=== PATIENT | female | born 1940 | race Caucasian/White ===

== ENCOUNTER → 2019-01-24 | Outpatient (CLI) | payer MEDICARE, OTHER ==
[~2019-01-24] MED LIST: ADVANCED CALCI1 EACH PO; ANAPROX DS550 MG PO; ASPIRIN81 M2 PO; FISH OIL 1,4001 EACH PO; IRON TABLET1 EACH PO; LEVOTHYROXINE0.05 MG PO; LIPITOR40 MG PO; ONE-A-DAY WOMENS PO; VITAMIN D-40400 UNIT PO; VITAMIN E400 UNI6 PO; VITAMINC500 PO; VITAMINS
== END ==
LOC: M.RAD 14:45
DX: Z12.31 Encounter for screening mammogram for malignant neoplasm of breast (principal)

== ENCOUNTER → 2019-03-01 | Outpatient (CLI) | payer MEDICARE, OTHER ==
--- NOTE | 2019-03-01 17:21 | CARDNUC ---
[place] [address] CARDIAC NUCLEAR IMAGING REPORT Name: RADHA BERRIOS Room: [facility]#: [id number] Admission: 03/01/19 Attend Phys: Teto Mills, Discharge: Date of : 38 Date of Service: 03/01/19 1721 Report #: [id number] THIS REPORT FOR: //name// APPROVED REPORT Study performed: 03/01/2019 10:44:16 Exam: Nuclear Stress Test Indication: Chest pain, Dyspnea Patient Location: Out-Patient Stress Tech: Gloria Nguyen Stress Nurse: Kitty Lewis RN Ht: 5 ft 0 in Wt: 150 lbs BSA: 1.65 m2 BMI: 29.29 Medical History Medical History: hyprlipidemia, hypretension, pvd Medications: asa-81, simvastatin, telmisartan Allergies: nkda Cardiac Risk Factors: age, hyperlipidemia, hypertension, pvd, family hx Previous Cardiac Procedures: none Exercise History: Indeterminate Stress Test Details Stress Test: Pharmacologic stress was paired with low level exercise. Reason for pharmacologic stress test: physical limitation. HR Resting HR: 57 bpm Max Heart Rate (APMHR): 141 bpm Max HR Achieved: 105 bpm Target HR (85% APMHR): 119 bpm % of APMHR: 74 Recovery HR: 75 bpm BP Resting BP: 143/73 mmHg Max BP: 169/80 mmHg ECG Resting ECG: Sinus Rhythm, nonspecific ST-T abnormalities Stress ECG: Sinus Tachycardia ST Change: [place] [address] CARDIAC NUCLEAR IMAGING REPORT Name: RADHA BERRIOS Room: [facility]#: [id number] Admission: 03/01/19 Attend Phys: Teto Mills, Discharge: Date of : 38 Date of Service: 03/01/19 1721 Report #: [id number] Deviation: 0.5 mm Arrhythmia: None Recovery ECG: Sinus Rhythm Recovery ST Change: Horizontal ST depression Recovery ST Deviation: 0.5 mm Recovery Arrhythmia: None Clinical Reason for Termination: Completed protocol The patient tolerated Lexiscan infusion without significant cardiac symptoms. Nurse Comments pt had st depression and chest pain during test. relieved with rest Stress ECG Conclusion The baseline 12-lead EKG showed sinus rhythm with some nonspecific T-wave flattening. EKGs obtained during and post Lexiscan infusion showed sinus rhythm and sinus tachycardia 0.[address] segment depression in the inferolateral leads. NM EXAM: Myocardial Perfusion REST/STRESS Resting Data Rest SPECT myocardial perfusion imaging was performed in supine position 30 minutes following the intravenous injection of 10.6 mCi of Tc-99m Sestamibi. Time of rest injection: 9:05 The images were gated to evaluate regional wall motion and calculate left ventricular ejection fraction. Administration Route: IV Administration Site: Right Arm Pharmacologic Stress Pharmacologic stress test was performed by injecting Regadenoson 0.4 mg IV push followed by the intravenous injection of 32.0 mCi of Tc-99m Sestamibi. Time of stress injection: 10:50 Administration Route: IV Administration Site: Right Arm Heart Rate at time of stress injection: 91 bpm. Gated Stress SPECT was performed 45 minutes after stress injection. The images were gated to evaluate regional wall motion and calculate left [place] [address] CARDIAC NUCLEAR IMAGING REPORT Name: RADHA BERRIOS Room: [facility]#: [id number] Admission: 03/01/19 Attend Phys: Teto Mills, Discharge: Date of : 38 Date of Service: 03/01/19 1721 Report #: [id number] Study Quality Study: Good Artifact: No artifact Study Data At rest, the left ventricular ejection fraction was 61%.. Post stress, the left ventricular ejection was 75%.. TID = 0.88. Perfusion Normal left ventricular perfusion. Wall Motion Normal left ventricular wall motion. Nuclear Conclusion ECG Findings: non-diagnostic Clinical Findings: negative for ischemia Nuclear Findings: negative for ischemia Exercise Capacity: not assessed Left Ventricular Function: normal Risk Study: low Myocardial perfusion images show no defect to suggest infarct or ischemia. Left ventricular systolic function appears normal on gated studies. This is a low risk study. <Conclusion> The baseline 12-lead EKG showed sinus rhythm with some nonspecific T-wave flattening. EKGs obtained during and post Lexiscan infusion showed sinus rhythm and sinus tachycardia 0.[address] segment depression in the inferolateral leads. <ELECTRONICALLY SIGNED> By: Teto Mills MD, [facility] 03/01/19 [id number] Teto Mills MD, FACC /INF
== END ==
LOC: M.NUC 02-19 08:38 → M.RAD 08:22 → M.NUC 08:30 → M.CRD 09:00 → M.NUC 10:00
DX: J98.4 Other disorders of lung (principal); J98.11 Atelectasis; E78.5 Hyperlipidemia, unspecified; I11.9 Hypertensive heart disease without heart failure; I73.9 Peripheral vascular disease, unspecified; Z79.899 Other long term (current) drug therapy; Z82.49 Family history of ischemic heart disease and other diseases of the circulatory system

== ENCOUNTER → 2019-03-26 | Outpatient (CLI) | payer MEDICARE, OTHER ==
[2019-03-26 14:05] LABS: CALCIUM 9.5 mg/dL (8.5-10.1); CREATININE 1.1 mg/dL (0.6-1.3); POTASSIUM 4.5 mmol/L (3.5-5.1)
--- NOTE | 2019-03-26 14:59 | 2DMMODE ---
[place] [address] 2 D/M-MODE ECHOCARDIOGRAM Name: RADHA BERRIOS Room: [facility]#: [id number] Admission: 03/26/19 Attend Phys: Brielle Thompson, Discharge: Date of : 38 Date of Service: 03/26/19 1459 Report #: [id number] THIS REPORT FOR: //name// APPROVED REPORT Study performed: 03/26/2019 13:45:13 EXAM: Comprehensive 2D, Doppler, and color-flow Echocardiogram Patient Location: Out-Patient BSA: 1.63 HR: 58 bpm BP: 143/73 mmHg Other Information Study Quality: Good Indications Dyspnea 2D Dimensions IVSd: 10.48 (7-11mm) LVOT Diam: 19.75 (18-24mm) LVDd: 41.28 mm PWd: 9.64 (7-11mm) Ascending Ao: 28.05 (22-36mm) LVDs: 24.45 (25-40mm) Aortic Root: 25.29 mm Volumes Left Atrial Volume (Systole) LA ESV Index: 17.90 mL/m2 Aortic Valve AoV Peak Fortino.: 1.19 m/s AO Peak Gr.: 5.62 mmHg LVOT Max P.86 mmHg AO Mean Gr.: 2.82 mmHg LVOT Mean P.57 mmHg LVOT Max V: 0.98 m/s AO V2 VTI: 24.43 cm LVOT Mean V: 0.56 m/s VASHTI (VTI): 2.43 cm2 LVOT V1 VTI: 19.37 cm Mitral Valve E/A Ratio: 0.67 MV Decel. Time: 261.06 ms MV E Max Fortino.: 0.37 m/s MV PHT: 75.71 ms MVA (PHT): 2.91 [place]2 [place] [address] 2 D/M-MODE ECHOCARDIOGRAM Name: RADHA BERRIOS Room: [facility]#: [id number] Admission: 03/26/19 Attend Phys: Brielle Thompson, Discharge: Date of : 38 Date of Service: 03/26/19 1459 Report #: [id number] TDI E/Lateral E': 6.17 E/Medial E': 3.70 Medial E' Fortino.: 0.10 m/s Lateral E' Fortino.: 0.06 m/s Pulmonary Valve PV Peak Fortino.: 1.00 m/s PV Peak Gr.: 3.99 mmHg Tricuspid Valve RAP Estimate: 5.00 mmHg TR Peak Gr.: 19.94 mmHg RVSP: 24.94 mmHg PA Pressure: 24.94 mmHg Left Ventricle The left ventricle is normal size. There is normal LV segmental wall motion. There is normal left ventricular wall thickness. Left ventricular systolic function is normal. LVEF is 60-65%. Grade I - abnormal relaxation pattern. Right Ventricle The right ventricle is normal size. The right ventricular systolic function is normal. Atria The left atrium size is normal. The right atrium size is normal. Aortic Valve The aortic valve is normal in structure. Trace aortic regurgitation. There is no aortic valvular stenosis. Mitral Valve The mitral valve is normal in structure. Trace mitral regurgitation. No evidence of mitral valve stenosis. Tricuspid Valve The tricuspid valve is normal in structure. Mild tricuspid regurgitation. No pulmonary hypertension. Pulmonic Valve The pulmonary valve is normal in structure. There is no pulmonic valvular regurgitation. Great Vessels The aortic root is normal in size. IVC [place] [address] 2 D/M-MODE ECHOCARDIOGRAM Name: RADHA BERRIOS Room: [facility]#: [id number] Admission: 03/26/19 Attend Phys: Brielle Thompson, Discharge: Date of : 38 Date of Service: 03/26/19 1459 Report #: [id number] collapses >50% with inspiration. Pericardium There is no pericardial effusion. <Conclusion> The left ventricle is normal size. There is normal left ventricular wall thickness. Left ventricular systolic function is normal. LVEF is 60-65%. Grade I - abnormal relaxation pattern. Trace aortic regurgitation. Trace mitral regurgitation. Mild tricuspid regurgitation. No pulmonary hypertension. IVC is normal in size and collapses >50% with inspiration. <ELECTRONICALLY SIGNED> By: Teto Mills MD, FACC 03/26/19 1459 1459 145 Teto Mills MD, FACC /INF
--- NOTE | 2019-04-09 08:02 | PF ---
[address] [address] PULMONARY FUNCTION REPORT Name: AGUSTINARADHA Carolina Room: [facility]#: [id number] Admission: 03/26/19 Attend Phys: Brielle Thompson RN Discharge: Date of : 38 Report #: [id number] THIS REPORT FOR: //name// CC: Jennifer Thompson DATE OF SERVICE: 03/26/2019 REQUESTING PHYSICIAN: Brielle Thompson, nurse practitioner. Spirometry reveals FEV1 to be normal at 1.75, FVC at 2.43. FEV1/FVC ratio 72%. Mid flows were moderately decreased at 55% of predicted. After inhaled bronchodilator, there was no change in the FEV1. However, mid flows did improve by 22%. Lung volumes by plethysmography were normal. Diffusion capacity was mildly diminished. IMPRESSION: Studies are consistent with a minimal obstructive process. Seen primarily at the level of the small airways. There is improvement after inhaled bronchodilator. Mild decrease in diffusion capacity. <ELECTRONICALLY SIGNED> By: Julieth Clemons MD 04/09/19 0802 1019 [id number] Clemons MD /nt
== END ==
LOC: M.CRD 03-18 17:33 → M.PUL 13:00 → M.CRD 14:00
PROVIDERS: Nurse Practitioner
DX: I07.1 Rheumatic tricuspid insufficiency (principal); R06.09 Other forms of dyspnea; I10 Essential (primary) hypertension

== ENCOUNTER → 2019-07-26 | Outpatient (CLI) | payer MEDICARE, OTHER | LOC: M.ULTRA 07-17 15:14 | DX: K80.20 Calculus of gallbladder without cholecystitis without obstruction (principal); N85.4 Malposition of uterus ==

== ENCOUNTER → 2019-08-01 | Outpatient (CLI) | payer MEDICARE, OTHER | LOC: M.CT 13:05 | DX: R10.32 Left lower quadrant pain (principal); K82.9 Disease of gallbladder, unspecified ==

== ENCOUNTER 2019-12-05 16:49 | Inpatient (IN) | payer MEDICARE, OTHER ==
[~2019-12-05] VITALS: Ht 152.4 cm; Wt 72.3 kg
[~2019-12-05 16:49] MED LIST changes: +ADVANCED CALCI1 EAC1 PO; -ADVANCED CALCI1 EACH PO; +IRON 100 PLUS1 EACH PO; -IRON TABLET1 EACH PO; -LEVOTHYROXINE0.05 MG PO; +SYNTHROID50 MCG PO; +VITAMIN D-40010 MCG PO; -VITAMIN D-40400 UNIT PO
[2019-12-05 16:55] VITALS: BP 178/81
[2019-12-05] MEDS ORDERED: LASIX 40 MG TAB40 MG PO (17:00)
[2019-12-05] MEDS ORDERED: OMEPRAZOLE40 MG PO (17:02)
[2019-12-05] MEDS ORDERED: SIMVASTATIN80 MG PO (17:03)
[2019-12-05] MEDS ORDERED: REQUIP 0.25 M0.25 MG PO (17:03)
[2019-12-05] MEDS ORDERED: TOLTERODINE TART4 MG PO (17:04)
[2019-12-05] MEDS ORDERED: FAMOTIDINE 40 M40 M1 PO (17:04)
[2019-12-05 17:45] LABS: ABSOLUTE EOSINOPHILS 0.2 thou/uL (0.0-0.7); ABSOLUTE LYMPHOCYTES 1.8 thou/uL (0.8-5.3); ABSOLUTE MONOCYTES 0.5 thou/uL (0.0-1.2); ABSOLUTE NEUTROPHILS 3.4 thou/uL (1.6-8.1); BASOPHILS 0.5 %; EOSINOPHILS 2.9 %; HEMATOCRIT 33.3 % (37.0-47.0); HEMOGLOBIN 11.5 gm/dL (12.0-15.0); LYMPHOCYTES 30.8 %; MCH 32.2 pg (26.0-34.0); MCHC 34.6 g/dL (28.0-37.0); MONOCYTES 8.2 %; MPV 7.8 fl. (7.2-11.1); NUCLEATED RBCS 0 /100WBC; PLATELET COUNT* 151 thou/uL (150-400); POLYS 57.6 %; RBC 3.59 mil/uL (4.20-5.00); RDW-CV 13.5 % (10.5-14.5); WBC 5.9 thou/uL (4.0-11.0)
[2019-12-05 17:51] LABS: CALCIUM 8.2 mg/dL (8.5-10.1); CREATININE 1.2 mg/dL (0.6-1.3); POTASSIUM 4.7 mmol/L (3.5-5.1)
[2019-12-05 18:01] LABS: ALBUMIN 3.3 g/dL (3.4-5.0); MAGNESIUM 1.9 mg/dL (1.8-2.4); TOTAL BILIRUBIN 0.4 mg/dL (<0.1-1.0); TOTAL PROTEIN 6.7 g/dL (6.4-8.2)
[2019-12-05 19:55] VITALS: BP 178/88
[2019-12-05 20:07] VITALS: BP 126/58
[2019-12-05] MEDS ORDERED: ACETAMINOPHEN325 M1 PO (20:47)
[2019-12-05 23:45] VITALS: BP 134/71
[2019-12-06] VITALS (34 sets, daily range): BP systolic 89–125; BP diastolic 42–85
[2019-12-06 00:39] LABS: HEMOGLOBIN 11.6 gm/dL (12.0-15.0); MCH 32.5 pg (26.0-34.0); MCHC 35.2 g/dL (28.0-37.0); MCV 92.4 fL (80.0-100.0); RBC 3.57 mil/uL (4.20-5.00); RDW-CV 13.8 % (10.5-14.5); WBC 6.8 thou/uL (4.0-11.0)
[2019-12-06 10:18] LABS: CHOLESTEROL 205 mg/dL (<200); HDL CHOLESTEROL 61 mg/dL (>40); LDL CHOLESTEROL 124 mg/dL (<100); TC:HDL 3.4 Ratio (Not establshd); TRIGLYCERIDE 103 mg/dL (<150); VLDL 21 mg/dL (<40)
[2019-12-06 10:19] LABS: SERUM ASSESSMENT Clear
[2019-12-06 13:48] LABS: ALBUMIN 3.3 g/dL (3.4-5.0); CALCIUM 8.2 mg/dL (8.5-10.1); CREATININE 1.2 mg/dL (0.6-1.3); POTASSIUM 4.8 mmol/L (3.5-5.1); TOTAL BILIRUBIN 0.7 mg/dL (<0.1-1.0); TOTAL PROTEIN 6.7 g/dL (6.4-8.2)
--- NOTE | 2019-12-06 16:52 | EKG ---
[place] [address] ELECTROCARDIOGRAM REPORT Name: RADHA BERRIOS Room: [address] IN M.R.#: [id number] Admission: 12/05/19 Attend Phys: Fidelina Melo, Discharge: Date of : 38 Date of Service: 12/05/19 1655 Report #: [id number] THIS REPORT FOR: //name// 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 : 1940 Requested By: Doni Carter Order Number: [id number] MD: Tristan Toribio Measurements Intervals Collins Rate: 69 P: 48 RI: 147 QRS: -9 QRSD: 93 T: 202 QT: 455 QTc: 488 Interpretive Statements Sinus rhythm Abnormal T, consider ischemia, diffuse leads Compared to ECG 10/31/2012 21:26:49 T-wave abnormality now present Possible ischemia now present Sinus bradycardia no longer present ST (T wave) deviation no longer present Incomplete right bundle-branch block no longer present Electronically Signed On 12-06-2019 16:51:00 CDT by Tristan Toribio [email or web address] <ELECTRONICALLY SIGNED> By: Tristan Toribio MD, [facility] 12/06/191650 54 54 Tristan Toribio MD, [facility] /EPI
[2019-12-07] VITALS (13 sets, daily range): BP systolic 99–137; BP diastolic 49–83
[2019-12-07 02:14] LABS: HEMOGLOBIN 10.5 gm/dL (12.0-15.0); MCH 32.7 pg (26.0-34.0); MCHC 35.1 g/dL (28.0-37.0); MPV 7.8 fl. (7.2-11.1); RBC 3.22 mil/uL (4.20-5.00); RDW-CV 13.6 % (10.5-14.5); WBC 6.3 thou/uL (4.0-11.0)
[2019-12-07 02:40] LABS: ALBUMIN 2.9 g/dL (3.4-5.0); CREATININE 1.4 mg/dL (0.6-1.3); MAGNESIUM 1.8 mg/dL (1.8-2.4); TOTAL BILIRUBIN 0.8 mg/dL (<0.1-1.0); TOTAL PROTEIN 5.6 g/dL (6.4-8.2)
--- NOTE | 2019-12-07 09:45 | EKG ---
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: : 1940 Requested By: Tristan Toribio Order Number: [id number] Claudio MD: Danielito Martinez Measurements Intervals [place] Rate: 62 P: 46 CA: 161 QRS: -15 QRSD: 96 T: 162 QT: 528 QTc: 537 Interpretive Statements Sinus rhythm Borderline left axis deviation RSR' in V1 or V2, right VCD or RVH Abnrm T, probable ischemia, anterolateral lds Prolonged QT interval Compared to ECG 10/31/2012 21:26:49 Right ventricular hypertrophy now present RSR' in V1 or V2 now present Possible ischemia now present Prolonged QT interval now present Sinus bradycardia no longer present ST (T wave) deviation no longer present Incomplete right bundle-branch block no longer present Electronically Signed On 12-07-2019 9:43:57 CDT by Danielito Martinez [email or web address] <ELECTRONICALLY SIGNED> By: Jennifer Martinez MD, [facility] 12/07/19 0943 1233 1233 Jennifer Martinez MD, [facility] /EPI
[2019-12-08] VITALS: BP 151/75
[2019-12-08 04:00] VITALS: BP 155/84
[2019-12-08 04:40] LABS: ALBUMIN 2.8 g/dL (3.4-5.0); CREATININE 1.4 mg/dL (0.6-1.3); MAGNESIUM 1.8 mg/dL (1.8-2.4); POTASSIUM 4.6 mmol/L (3.5-5.1); TOTAL BILIRUBIN 0.6 mg/dL (<0.1-1.0); TOTAL PROTEIN 5.4 g/dL (6.4-8.2)
[2019-12-08 05:13] LABS: HEMATOCRIT 27.3 % (37.0-47.0); HEMOGLOBIN 9.5 gm/dL (12.0-15.0); MCH 32.4 pg (26.0-34.0); MCHC 34.8 g/dL (28.0-37.0); MCV 93.1 fL (80.0-100.0); MPV 8.7 fl. (7.2-11.1); RBC 2.93 mil/uL (4.20-5.00); RDW-CV 13.8 % (10.5-14.5); WBC 6.2 thou/uL (4.0-11.0)
[2019-12-08 08:00] VITALS: BP 130/62
[2019-12-08] MEDS ORDERED: BRILINTA90 MG PO (09:44)
[2019-12-08 11:30] VITALS: BP 123/58
--- NOTE | 2019-12-14 10:19 | CARD ---
[address] [address] CARDIAC CATH REPORT Name: RADHA BERRIOS Room: [address] IN [facility]#: [id number] Admission: 12/05/19 Attend Phys: Fidelina Melo MD Discharge: 12/08/19 Date of : 38 Report #: [id number] THIS REPORT FOR: //name// cc: Jennifer Antoine Linda J. DO ~ ADDENDUM APPROVED REPORT Study performed: 12/06/2019 09:29:21 Patient Details Patient Status: In-Patient Room #: The patient is a 79 year-old female Event Personnel Tristan Toribio Tying Machine Operator Lumber, Wale Chapman RTR Scrub, Peggy Perez RTR Monitor, Munira Hernandez RN Oval Or Circular Glass Cutter Procedures Performed Art Access - R femoral artery, Left Heart Cath w/or w/o Coronaries LHC , SHELBY Place w/wo Plasty Single LAD , Hemostasis w/ Angioseal; CPR Indication Non-STEMI Risk Factors Hypercholesterolemia Admission/Lab Medications/Medications given during procedure Angiomax IV 10.5 ml, Angiomax Drip IV 25.3 ml per hr, Dopamine 10 mcg/kg/min ,Ticagrelor PO 180 mg, Aspirin PO 81 mg Procedure Narrative The patient was brought electively to the Cardiac Catheterization Laboratory and was prepped and draped in a sterile manner. The right femoral was infiltrated with 2% Lidocaine subcutaneous anesthesia. A 6F [place] sheath was inserted into the right femoral artery. Coronary angiography was performed using coronary diagnostic catheters. The right coronary system was accessed and visualized with a 6F JR4 catheter. The left coronary system was accessed and visualized with a 6F JL3.5 catheter. The left ventricle was accessed and visualized with a 6F Pigtail catheter. Left ventricular/Aortic Valve gradient assessed via catheter pullback. Left ventriculogram was performed in PENNY projection. Pre-demployment femoral angiogram was performed . Closure device was deployed with a 6 [place] [address] CARDIAC CATH REPORT Name: RADHA BERRIOS Carolina Room: [address]#: [id number] Admission: 12/05/19 Attend Phys: Fidelina Melo MD Discharge: 12/08/19 Date of : 38 Report #: [id number] STS. The patient tolerated the procedure well and there were no complications associated with the procedure. There was no hematoma. CPR/CODE BLUE was initiated. See Code sheet for medications during Code. Intraoperative Conscious Sedation Sedation start time: 10:25 Case end Time: 11:21 Fentanyl 25 mcg Versed 1 mg Fluoro Time: 14.9 minutes Dose: DAP 77846 cGycm2 1373 mGy Contrast Type and Amount: Visipaque 340 ml Coronary Angiography The patient's coronary anatomy is right dominant. Diagnostic Cath Left Main 10% distal narrowing LAD 90% diffuse proximalmid LAD narrowing which was severely calcified Circumflex 40% proximal and mid vessel narrowing Right Coronary 0% narrowing Left Ventriculography The left ventricle is normal in size with normal contractility. The left ventricular ejection fraction is estimated to be 55-60%. Left ventricular wall motion abnormalities are present. There is no mitral insufficiency. Mild anteroapical hypokinesis is noted Hemodynamics The aortic pressure is 113/44 mmHg with a mean of 74 mmHg. The left ventricular pressure is 119/-1 mmHg with a mean of mmHg. The left ventricular end diastolic pressure is 14 mmHg. There was no gradient across the aortic valve upon pullback. PCI Technique Lesion Anticoagulation was achieved with Angiomax. Patient was preloaded with Angiomax IV 10.5 ml. Percutaneous coronary intervention was performed on the proximal left anterior descending artery segment. The lesion stenosis prior to intervention was 90% with LEOBARDO 3 flow. A 6FR XB 3.0 100CM Guide Catheter was used to engage the lm ostium. A ProwaterFlex 180CM Interventional Guidewire was [place] [address] CARDIAC CATH REPORT Name: RADHA BERRIOS Room: [address] IN M.R.#: [id number] Admission: 12/05/19 Attend Phys: Fidelina Melo MD Discharge: 12/08/19 Date of : 38 Report #: [id number] BALLOON DILATION A Balloon catheter Mini Trek RX 2.0 X 12 was inserted and inflated up to 8.00atm for 5seconds. Additional Inflation: 12.00atm for 7seconds. Additional Inflation: 16.00atm for 9seconds. STENT DEPLOYMENT A drug-eluting stent Ian RX Stent 2.29J60ma was inserted and inflated up to 12.00atm for 4seconds. POST STENT DEPLOYMENT BALLOON DILATION A Balloon catheter Euphora SC 2.0x12mm was inserted and inflated up to 12.00atm for 3seconds. Additional Inflation: 12.00atm for 5seconds. Additional Inflation: 12.00atm for 5seconds. A Balloon catheter NC Euphora RX 2.5 x 12mm was inserted and inflated up to 12 shawn for 5 seconds. Additional Inflation: 15 shawn for 6 seconds. Final angiography reveals 0 % stenosis with LEOBARDO 3 flow. COMMENTS The patient experienced no re= flow after deployment of the proximalmid LAD stent. This resolved after CPR and infusion of dopamine with passing of the balloon catheter up and down the length of the LAD system. There was evangelical of LEOBARDO-3 flow and evangelical of normal hemodynamics after the aforementioned measures. Conclusion 1. Non-STEMI 2 severe coronary artery disease characterized by the following: A 90% diffuse calcified proximalmid LAD stenosis B 40% proximal and mid circumflex narrowing 2. Normal left-sided hemodynamic study 3. Normal global LV function, estimated ejection fraction 55 to 60% with mild anteroapical hypokinesis 4. Successful PCI with deployment of a drug-eluting stent and postdilatation of the stent with 0% residual narrowing at the site of previously noted 90% proximalmid LAD stenosis 5. Transient no reflow after deployment of the LAD stent due to [facility] [address] [place] [address] CARDIAC CATH REPORT Name: RADHA BERRIOS Room: M.227-1 DIS IN M.R.#: [id number] Admission: 12/05/19 Attend Phys: Fidelina Melo MD Discharge: 12/08/19 Date of : 38 Report #: [id number] distal microembolization; this resolved after CPR, infusion of dopamine, and passing the balloon catheter up and down the length of the LAD system. Recommendations Cardiac Risk Reduction Program Aggressive Medical Therapy Medications Administered Aspirin (any) Ticagrelor Diagnostic Cath Approved by: Tristan Toribio MD Date/Time: 12/07/2019 11:21:01 <ELECTRONICALLY SIGNED> By: Tristan Toribio MD, [facility] 12/14/19 1018 1018 1018Tristan Toribio MD, [facility] /INF
== END 2019-12-08 12:45 | disposition home or self-care (01) | DRG 246 ==
LOC: M.ERS 16:49 → M.2W 18:36 → M.TBA-ER 18:36 → M.2W 19:43 → M.ICU 12-06 11:33 → M.2W 12-07 11:35
PROVIDERS: Emergency Medicine Emergency Medical Services; Internal Medicine; Registered Nurse; ADMIT Internal Medicine; ATTEND Internal Medicine
PROC: B211YZZ Fluoroscopy of Multiple Coronary Arteries using Other Contrast (ICD-10-PCS; principal; 2019-12-06)
PROC: 4A023N7 Measurement of Cardiac Sampling and Pressure, Left Heart, Percutaneous Approach (ICD-10-PCS; principal; 2019-12-06)
PROC: 5A12012 Performance of Cardiac Output, Single, Manual (ICD-10-PCS; principal; 2019-12-06)
PROC: B215YZZ Fluoroscopy of Left Heart using Other Contrast (ICD-10-PCS; principal; 2019-12-06)
PROC: 027034Z Dilation of Coronary Artery, One Artery with Drug-eluting Intraluminal Device, Percutaneous Approach (ICD-10-PCS; principal; 2019-12-06)
DX: I21.4 Non-ST elevation (NSTEMI) myocardial infarction (principal); N17.0 Acute kidney failure with tubular necrosis; S22.42XA Multiple fractures of ribs, left side, initial encounter for closed fracture; I46.9 Cardiac arrest, cause unspecified; E87.1 Hypo-osmolality and hyponatremia; E03.9 Hypothyroidism, unspecified; E78.5 Hyperlipidemia, unspecified; I10 Essential (primary) hypertension; E66.9 Obesity, unspecified; K75.9 Inflammatory liver disease, unspecified; X58.XXXA Exposure to other specified factors, initial encounter; Z98.42 Cataract extraction status, left eye; Z98.41 Cataract extraction status, right eye; Z79.82 Long term (current) use of aspirin; Z79.899 Other long term (current) drug therapy; Z68.31 Body mass index [BMI] 31.0-31.9, adult; Y93.89 Activity, other specified; Y92.89 Other specified places as the place of occurrence of the external cause; Y99.8 Other external cause status

== ENCOUNTER → 2019-12-17 | Outpatient (CLI) | payer MEDICARE, OTHER ==
[~2019-12-17] MED LIST changes: +ACETAMINOPHEN325 M1 PO; +BRILINTA90 MG PO; +FAMOTIDINE 40 M40 M1 PO; +LASIX 40 MG TAB40 MG PO; +OMEPRAZOLE40 MG PO; +REQUIP 0.25 M0.25 MG PO; +SIMVASTATIN80 MG PO; +TOLTERODINE TART4 MG PO
[2019-12-17 14:03] LABS: ABSOLUTE EOSINOPHILS 0.2 thou/uL (0.0-0.7); ABSOLUTE LYMPHOCYTES 1.5 thou/uL (0.8-5.3); ABSOLUTE MONOCYTES 0.7 thou/uL (0.0-1.2); ABSOLUTE NEUTROPHILS 5.4 thou/uL (1.6-8.1); BASOPHILS 0.4 %; HEMATOCRIT 34.2 % (37.0-47.0); HEMOGLOBIN 11.9 gm/dL (12.0-15.0); LYMPHOCYTES 19.1 %; MCH 32.2 pg (26.0-34.0); MCHC 34.7 g/dL (28.0-37.0); MCV 92.8 fL (80.0-100.0); MONOCYTES 8.9 %; MPV 7.5 fl. (7.2-11.1); NUCLEATED RBCS 0 /100WBC; PLATELET COUNT* 198 thou/uL (150-400); POLYS 68.6 %; RBC 3.68 mil/uL (4.20-5.00); WBC 7.9 thou/uL (4.0-11.0)
[2019-12-17 14:11] LABS: CALCIUM 8.8 mg/dL (8.5-10.1); CREATININE 1.2 mg/dL (0.6-1.3); POTASSIUM 4.5 mmol/L (3.5-5.1)
== END ==
LOC: M.LAB 13:41
PROVIDERS: ATTEND Registered Nurse
DX: I10 Essential (primary) hypertension (principal); D50.9 Iron deficiency anemia, unspecified

== ENCOUNTER → 2020-01-15 | Outpatient (CLI) | payer MEDICARE, OTHER ==
--- NOTE | 2020-01-15 15:02 | 2DMMODE ---
[place] [address] 2 D/M-MODE ECHOCARDIOGRAM Name: AGUSTINARADHA M Room: [facility]#: [id number] Admission: 01/15/20 Attend Phys: Carolina Little Discharge: Date of : 38 Date of Service: 01/15/20 1501 Report #: [id number] THIS REPORT FOR: cc: Jennifer Antoine Linda J. DO Holkins,Tristan Virk MD [facility] ~ APPROVED REPORT Study performed: 01/15/2020 12:58:59 EXAM: Comprehensive 2D, Doppler, and color-flow Echocardiogram Patient Location: Out-Patient BSA: 1.67 HR: 62 bpm BP: 115/63 mmHg Other Information Study Quality: Good Indications Dyspnea 2D Dimensions IVSd: 9.78 (7-11mm) LVOT Diam: 19.46 (18-24mm) LVDd: 43.86 mm PWd: 9.20 (7-11mm) Ascending Ao: 28.13 (22-36mm) LVDs: 23.61 (25-40mm) Aortic Root: 21.05 mm Volumes Left Atrial Volume (Systole) LA ESV Index: 14.10 mL/m2 Aortic Valve AoV Peak Fortino.: 1.03 m/s AO Peak Gr.: 4.27 mmHg LVOT Max P.75 mmHg AO Mean Gr.: 1.93 mmHg LVOT Mean P.25 mmHg LVOT Max V: 0.83 m/s AO V2 VTI: 19.14 cm LVOT Mean V: 0.51 m/s VASHTI (VTI): 2.69 cm2 LVOT V1 VTI: 17.30 cm Mitral Valve E/A Ratio: 0.68 [place] [address] 2 D/M-MODE ECHOCARDIOGRAM Name: RADHA BERRIOS Room: [facility]#: [id number] Admission: 01/15/20 Attend Phys: Carolina Little Discharge: Date of : 38 Date of Service: 01/15/20 1501 Report #: [id number] MV Decel. Time: 267.28 ms MV E Max Fortino.: 0.38 m/s MV PHT: 77.51 ms MVA (PHT): 2.84 cm2 TDI E/Lateral E': 7.60 E/Medial E': 7.60 Medial E' Fortino.: 0.05 m/s Lateral E' Fortino.: 0.05 m/s Pulmonary Valve PV Peak Fortino.: 0.97 m/s PV Peak Gr.: 3.78 mmHg Tricuspid Valve RAP Estimate: 5.00 mmHg TR Peak Gr.: 19.00 mmHg RVSP: 24.00 mmHg PA Pressure: 24.00 mmHg Left Ventricle The left ventricle is normal size. There is normal LV segmental wall motion. There is normal left ventricular wall thickness. Left ventricular systolic function is normal. The left ventricular ejection fraction is within the normal range. LVEF is 60%. Grade I - abnormal relaxation pattern. Right Ventricle The right ventricle is normal size. The right ventricular systolic function is normal. Atria The left atrium size is normal. The right atrium size is normal. Aortic Valve Mild aortic valve sclerosis. Trace aortic regurgitation. There is no aortic valvular stenosis. Mitral Valve The mitral valve is normal in structure. Trace mitral regurgitation. No evidence of mitral valve stenosis. Tricuspid Valve The tricuspid valve is normal in structure. Mild tricuspid regurgitation[place] [address] 2 D/M-MODE ECHOCARDIOGRAM Name: AGUSTINARADHA Room: [facility]#: [id number] Admission: 01/15/20 Attend Phys: Carolina Little Discharge: Date of : 38 Date of Service: 01/15/20 1501 Report #: [id number] The pulmonary valve is normal in structure. There is no pulmonic valvular regurgitation. Great Vessels The aortic root is normal in size. IVC is normal in size and collapses >50% with inspiration. Pericardium There is no pericardial effusion. <Conclusion> The left ventricle is normal size. There is normal left ventricular wall thickness. Left ventricular systolic function is normal. The left ventricular ejection fraction is within the normal range. LVEF is 60%. The right ventricle is normal size. The left atrium size is normal. Mild aortic valve sclerosis. Trace aortic regurgitation. There is no aortic valvular stenosis. The mitral valve is normal in structure. The tricuspid valve is normal in structure. Mild tricuspid regurgitation. IVC is normal in size and collapses >50% with inspiration. There is no pericardial effusion. There is normal LV segmental wall motion. <ELECTRONICALLY SIGNED> By: Tristan Toribio MD, FACC 01/15/20 1501 1501 1501 Tristan Toribio MD, FACC /INF
== END ==
LOC: M.CRD 12:56
PROVIDERS: ATTEND Internal Medicine
DX: I08.2 Rheumatic disorders of both aortic and tricuspid valves (principal); I25.10 Atherosclerotic heart disease of native coronary artery without angina pectoris; I10 Essential (primary) hypertension

== ENCOUNTER → 2020-01-17 | Outpatient (CLI) | payer MEDICARE, OTHER | LOC: M.CT 13:15 | PROVIDERS: ATTEND Family Medicine | DX: K80.10 Calculus of gallbladder with chronic cholecystitis without obstruction (principal); R06.02 Shortness of breath ==

== ENCOUNTER → 2020-01-24 | Outpatient (CLI) | payer MEDICARE, OTHER | LOC: M.ULTRA 09:00 | PROVIDERS: ATTEND Family Medicine | DX: K80.20 Calculus of gallbladder without cholecystitis without obstruction (principal); K82.8 Other specified diseases of gallbladder ==

== ENCOUNTER → 2020-05-29 | Outpatient (CLI) | payer MEDICARE, OTHER | LOC: M.PUL 05-27 12:16 → M.ULTRA 14:50 | PROVIDERS: ATTEND Internal Medicine Critical Care Medicine | DX: R06.00 Dyspnea, unspecified (principal); R07.1 Chest pain on breathing ==

== ENCOUNTER → 2020-06-02 | Outpatient (CLI) | payer MEDICARE, OTHER | LOC: M.SLEEPLAB 19:46 | PROVIDERS: ATTEND Internal Medicine Critical Care Medicine | DX: G25.81 Restless legs syndrome (principal); G47.19 Other hypersomnia; I10 Essential (primary) hypertension; Z68.29 Body mass index [BMI] 29.0-29.9, adult ==

== ENCOUNTER → 2020-06-04 | Outpatient (CLI) | payer MEDICARE, OTHER ==
--- NOTE | 2020-06-16 11:18 | PF ---
[address] [address] PULMONARY FUNCTION REPORT Name: AGUSTINARADHA Carolina Room: [facility]#: [id number] Admission: 06/04/20 Attend Phys: Dennis Bhandari MD Discharge: Date of : 38 Report #: [id number] THIS REPORT FOR: cc: Jennifer Antoine Linda J. DO ~ Dennis Bhandari MD DATE OF SERVICE: 06/04/2020 The FEV1/FVC ratio is normal at 72% with an FVC normal at 111% and FEV1 normal at 109%. The VTW69-67 is decreased to 55%. After the administration of a bronchodilator, there is a 34% increase in AAS95-47, which is just below criteria for reversibility. There is no other significant change after the administration of a bronchodilator. The patient's post-bronchodilator FEV1 is 1.71 liters. The total lung capacity is normal at 88% with a residual volume mildly decreased to 69%. The DLCO as adjusted for hemoglobin is mildly decreased to 74%. IMPRESSION: 1. Minimal obstruction as evidenced by reduction in CSU41-97 on spirometry with some improvement after the administration of a bronchodilator, which is just below criteria for reversibility. 2. There are isolated mild decrease in residual volume to 69%. The total lung capacity, however, is normal at 88%. 3. The DLCO as adjusted for hemoglobin is mildly decreased to 74%. <ELECTRONICALLY SIGNED> By: Dennis Bhandari MD 06/16/20 1118 1537 1838Aluz maria Bhandari MD /nt
== END ==
LOC: M.PUL 11:00
PROVIDERS: ATTEND Internal Medicine Critical Care Medicine
DX: J98.8 Other specified respiratory disorders (principal); R06.00 Dyspnea, unspecified

== ENCOUNTER 2020-09-22 12:22 | Inpatient (IN) | payer MEDICARE, OTHER ==
[~2020-09-22] VITALS: Ht 154.9 cm; Wt 67.6 kg
[2020-09-22 12:27] VITALS: BP 162/65
[2020-09-22] MEDS ORDERED: MICARDIS 20MG T20 M1 PO (12:37)
[2020-09-22] MEDS ORDERED: SYSTANE ULTRA 010 ML OPHTHALMIC (12:38)
[2020-09-22] MEDS ORDERED: REFRESH CLASSI1 EACH OPHTHALMIC (12:38)
[2020-09-22] MEDS ORDERED: HAIR, SKIN A66.7 MCG PO (12:38)
[2020-09-22] MEDS ORDERED: CAL MAG ZINC +1 EAC1 PO (12:39)
[2020-09-22] MEDS ORDERED: VICKS VAPORUB O50 GM TOP (12:39)
[2020-09-22 12:47] LABS: ABSOLUTE EOSINOPHILS 0.2 thou/uL (0.0-0.7); ABSOLUTE LYMPHOCYTES 1.9 thou/uL (0.8-5.3); ABSOLUTE MONOCYTES 0.7 thou/uL (0.0-1.2); ABSOLUTE NEUTROPHILS 3.7 thou/uL (1.6-8.1); BASOPHILS 0.5 %; EOSINOPHILS 2.7 %; HEMATOCRIT 35.1 % (37.0-47.0); HEMOGLOBIN 11.7 gm/dL (12.0-15.0); LYMPHOCYTES 28.7 %; MCH 30.6 pg (26.0-34.0); MCHC 33.2 g/dL (28.0-37.0); MCV 92.2 fL (80.0-100.0); MONOCYTES 10.5 %; MPV 7.6 fl. (7.2-11.1); NUCLEATED RBCS 0 /100WBC; PLATELET COUNT* 185 thou/uL (150-400); POLYS 57.6 %; RBC 3.81 mil/uL (4.20-5.00); RDW-CV 13.9 % (10.5-14.5); WBC 6.5 thou/uL (4.0-11.0)
[2020-09-22 12:55] LABS: CALCIUM 8.6 mg/dL (8.5-10.1)
[2020-09-22 12:59] LABS: ALBUMIN 3.3 g/dL (3.4-5.0); APTT 24.1 Seconds (25.0-31.3); PROTIME 10.5 Seconds (9.20-11.50); TOTAL BILIRUBIN 0.4 mg/dL (<0.1-1.0); TOTAL PROTEIN 7.5 g/dL (6.4-8.2)
[2020-09-22 14:40] VITALS: BP 130/59
[2020-09-22 14:55] VITALS: BP 140/68
--- NOTE | 2020-09-22 17:01 | EKG ---
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 : 1940 Requested By: Sukumar Ferrer Order Number: [id number] MD: John Crowell Measurements Intervals [place] Rate: 64 P: 51 TX: 149 QRS: -23 QRSD: 96 T: 39 QT: 446 QTc: 461 Interpretive Statements Sinus rhythm Borderline left axis deviation RSR' in V1 or V2, probably normal variant Borderline T abnormalities, anterior leads Compared to ECG 12/06/2019 12:33:35 Possible ischemia no longer present Prolonged QT interval no longer present Electronically Signed On 09-22-2020 17:00:56 CDT by John Crowell [email or web address] <ELECTRONICALLY SIGNED> By: John Crowell MD, [facility] 09/22/20 1700 1228 John Crowell MD, [facility] /EPI
[2020-09-22 20:20] VITALS: BP 122/66
[2020-09-23 00:06] VITALS: BP 132/51
[2020-09-23 04:18] VITALS: BP 125/55
[2020-09-23 04:56] LABS: ANION GAP 9 mmol/L (7-16); CHLORIDE 107 mmol/L (98-107); CHOLESTEROL 133 mg/dL (<200); CO2 26 mmol/L (21-32); CREATININE 0.9 mg/dL (0.6-1.3); GLUCOSE 102 mg/dL (70-99); HDL CHOLESTEROL 45 mg/dL (>40); LDL CHOLESTEROL 66 mg/dL (<100); POTASSIUM 4.4 mmol/L (3.5-5.1); SODIUM 142 mmol/L (136-145); TRIGLYCERIDE 110 mg/dL (<150); VLDL 22 mg/dL (<40)
[2020-09-23 04:57] LABS: CALCIUM 10.9 mg/dL (8.5-10.1)
[2020-09-23 05:03] LABS: BUN 22 mg/dL (7-18)
[2020-09-23 05:09] LABS: SERUM ASSESSMENT Clear
[2020-09-23 08:21] VITALS: BP 124/65
[2020-09-23 11:53] VITALS: BP 116/46
--- NOTE | 2020-09-23 14:11 | 2DMMODE ---
[place] [address] 2 D/M-MODE ECHOCARDIOGRAM Name: AGUSTINARADHA Carolina Room: [address] IN ..#: [id number] Admission: 09/22/20 Attend Phys: Eddie Mcconnell, Discharge: Date of : 38 Date of Service: 09/23/20 1411 Report #: [id number] THIS REPORT FOR: cc: Jennifer Antoine,Jennifer Knight,John Silva MD [facility] ~ APPROVED REPORT Study performed: 09/23/2020 11:45:09 EXAM: Comprehensive 2D, Doppler, and color-flow Echocardiogram Patient Location: In-Patient Room #: [facility] Status: routine BSA: 1.66 HR: 60 bpm BP: 124/65 mmHg Rhythm: NSR Other Information Study Quality: Good Indications Chest Pain 2D Dimensions IVSd: 7.63 (7-11mm) LVOT Diam: 19.73 (18-24mm) LVDd: 45.00 mm PWd: 8.40 (7-11mm) Ascending Ao: 32.18 (22-36mm) LVDs: 28.31 (25-40mm) Aortic Root: 29.65 mm Volumes Left Atrial Volume (Systole) LA ESV Index: 29.60 mL/m2 Aortic Valve AoV Peak Fortino.: 1.24 m/s AO Peak Gr.: 6.13 mmHg LVOT Max P.64 mmHg AO Mean Gr.: 3.19 mmHg LVOT Mean P.46 mmHg LVOT Max V: 0.95 m/s AO V2 VTI: 25.31 cm LVOT Mean V: 0.54 m/s VASHTI (VTI): 2.30 cm2 LVOT V1 VTI: 19.06 [place] [address] 2 D/M-MODE ECHOCARDIOGRAM Name: RADHA BERRIOS Room: [address] IN .R.#: [id number] Admission: 09/22/20 Attend Phys: Eddie Mcconnell, Discharge: Date of : 38 Date of Service: 09/23/20 1411 Report #: [id number] Mitral Valve E/A Ratio: 0.84 MV Decel. Time: 244.49 ms MV E Max Fortino.: 0.54 m/s MV PHT: 70.90 ms MVA (PHT): 3.10 cm2 TDI E/Lateral E': 6.75 E/Medial E': 7.71 Medial E' Fortino.: 0.07 m/s Lateral E' Fortino.: 0.08 m/s Pulmonary Valve PV Peak Fortino.: 0.84 m/s PV Peak Gr.: 2.80 mmHg Tricuspid Valve RAP Estimate: 5.00 mmHg TR Peak Gr.: 26.86 mmHg RVSP: 31.00 mmHg PA Pressure: 31.00 mmHg Left Ventricle The left ventricle is normal size. There is normal LV segmental wall motion. There is normal left ventricular wall thickness. Left ventricular systolic function is normal. The left ventricular ejection fraction is within the normal range. LVEF is 60-65%. Grade I - abnormal relaxation pattern. Right Ventricle The right ventricle is normal size. The right ventricular systolic function is normal. Atria The left atrium size is normal. The right atrium size is normal. Aortic Valve The aortic valve is normal in structure. Trace aortic regurgitation. There is no aortic valvular stenosis. Mitral Valve The mitral valve is normal in structure. Trace mitral regurgitation. No evidence of mitral valve stenosis. Tricuspid Valve The tricuspid valve is normal in structure. Mild tricuspid regurgitation. estimated pa pressure 35 [place] [address] 2 D/M-MODE ECHOCARDIOGRAM Name: RADHA BERRIOS Room: [address] IN [facility]#: [id number] Admission: 09/22/20 Attend Phys: Eddie Mcconnell, Discharge: Date of : 38 Date of Service: 09/23/20 1411 Report #: [id number] Pulmonic Valve The pulmonary valve is normal in structure. Trace pulmonic regurgitation. Great Vessels The aortic root is normal in size. IVC is normal in size and collapses >50% with inspiration. Pericardium There is no pericardial effusion. <Conclusion> LVEF is 60-65%. Trace aortic regurgitation. Trace mitral regurgitation. Mild tricuspid regurgitation. estimated pa pressure 35 mm Hg <ELECTRONICALLY SIGNED> By: John Crowell MD, FACC 09/23/20 141 141 141 John Crowell MD, FACC /INF
[2020-09-23 15:47] VITALS: BP 115/60
[2020-09-23 23:45] VITALS: BP 118/64
[2020-09-24 03:58] VITALS: BP 112/52
[2020-09-24 08:50] VITALS: BP 118/55
[2020-09-24] MEDS ORDERED: OMEPRAZOLE40 MG PO (08:59)
[2020-09-24] MEDS ORDERED: CLOPIDOGREL75 MG PO (08:59)
[2020-09-24] MEDS ORDERED: NITROGLYCERIN0.4 MG SUBLING (08:59)
[2020-09-24] MEDS ORDERED: PROTONIX40 M4 PO (09:02)
[2020-09-24 12:37] VITALS: BP 118/55
[2020-09-24 13:27] VITALS: BP 123/54
== END 2020-09-24 14:05 | disposition home or self-care (01) | DRG 392 ==
LOC: M.ERS 12:22 → M.TBA-ER 13:35 → M.2W 13:52 → M.TBA-ER 13:52 → M.2W 14:50
PROVIDERS: Emergency Medicine; ADMIT Internal Medicine; ATTEND Internal Medicine
PROC: 5A09357 Assistance with Respiratory Ventilation, Less than 24 Consecutive Hours, Continuous Positive Airway Pressure (ICD-10-PCS; principal; 2020-09-22)
DX: K21.9 Gastro-esophageal reflux disease without esophagitis (principal); I25.10 Atherosclerotic heart disease of native coronary artery without angina pectoris; E78.5 Hyperlipidemia, unspecified; E03.9 Hypothyroidism, unspecified; I10 Essential (primary) hypertension; Z20.822 Contact with and (suspected) exposure to COVID-19; Z98.42 Cataract extraction status, left eye; Z98.41 Cataract extraction status, right eye; Z95.5 Presence of coronary angioplasty implant and graft; I25.2 Old myocardial infarction; Z79.82 Long term (current) use of aspirin; Z79.899 Other long term (current) drug therapy

== ENCOUNTER → 2021-01-12 | Outpatient (CLI) | payer MEDICARE, OTHER ==
[~2021-01-12] MED LIST changes: +CAL MAG ZINC +1 EAC1 PO; +CLOPIDOGREL75 MG PO; +HAIR, SKIN A66.7 MCG PO; +MICARDIS 20MG T20 M1 PO; +NITROGLYCERIN0.4 MG SUBLING; +PROTONIX40 M4 PO; +REFRESH CLASSI1 EACH OPHTHALMIC; +SYSTANE ULTRA 010 ML OPHTHALMIC; +VICKS VAPORUB O50 GM TOP
== END ==
LOC: M.CT 11:00
PROVIDERS: ATTEND Family Medicine
DX: K21.9 Gastro-esophageal reflux disease without esophagitis (principal); R05 Cough; J32.9 Chronic sinusitis, unspecified; K92.1 Melena; R51.9 Headache, unspecified

== ENCOUNTER → 2021-03-19 | Outpatient (CLI) | payer MEDICARE, OTHER ==
--- NOTE | 2021-03-19 17:23 | CARDNUC ---
[place] [address] CARDIAC NUCLEAR IMAGING REPORT Name: RADHA BERRIOS Room: [facility]#: [id number] Admission: 03/19/21 Attend Phys: Carolina Little Discharge: Date of : 38 Date of Service: 03/19/21 1723 Report #: [id number] THIS REPORT FOR: cc: Jennifer Antoine Linda J. DO Liston, Michael J. MD [facility] ~ APPROVED REPORT Study performed: 03/19/2021 13:33:31 Exam: Nuclear Stress Test Indication: FOLLOW UP Patient Location: Out-Patient Stress Nurse: MAGALIS Hodgson Tech:KEON Randolph Ht: 5 ft 0 in Wt: 146 lbs BSA: 1.63 m2 BMI: 28.51 Medical History Medical History: CAD s/p stent, HTN, Hyperlipidemia Medications: ASA-81, CLOPIDOGREL, SIMVASTATIN, TEMISARTAN Allergies: No known drug allergies Cardiac Risk Factors: Age, HTN, Hyperlipidemia Previous Cardiac Procedures: PCI Exercise History: Sedentary Stress Test Details Stress Test: Pharmacologic stress testing performed using 0.4 mg of regadenoson per 5 mL given IV over 10 seconds. HR Resting HR: 60 bpm Max Heart Rate (APMHR): 139 bpm Max HR Achieved: 82 bpm Target HR (85% APMHR): 118 bpm % of APMHR: 58 Recovery HR: 74 bpm BP Resting BP: 152/77 mmHg Max BP: 141/69 mmHg ECG Resting ECG: Sinus Rhythm Stress ECG: [place] [address] CARDIAC NUCLEAR IMAGING REPORT Name: RADHA BERRIOS Room: [facility]#: [id number] Admission: 03/19/21 Attend Phys: Carolina Little Discharge: Date of : 38 Date of Service: 03/19/21 1723 Report #: [id number] Change: None Arrhythmia: None Recovery ECG: Sinus Rhythm Recovery ST Change: None Recovery Arrhythmia: None Clinical Reason for Termination: Completed protocol Patient tolerated Lexiscan infusion without significant cardiac symptoms. Stress ECG Conclusion The baseline twelve-lead EKG shows sinus rhythm without significant ST segment or T wave abnormality. EKGs obtained during and post Lexiscan infusion shows sinus rhythm with no significant ST segment changes when compared to baseline. There were no stress-induced arrhythmias. NM EXAM: Myocardial Perfusion REST/STRESS Resting Data Rest SPECT myocardial perfusion imaging was performed in supine position 30 minutes following the intravenous injection of 11.4 mCi of Tc-99m Sestamibi. Time of rest injection: 12:25 The images were gated to evaluate regional wall motion and calculate left ventricular ejection fraction. Administration Route: IV Administration Site: Right AC Pharmacologic Stress Pharmacologic stress test was performed by injecting Regadenoson 0.4 mg IV push followed by the intravenous injection of 35.0 mCi of Tc-99m Sestamibi. Time of stress injection: 13:40 Administration Route: IV Administration Site: Right AC Heart Rate at time of stress injection: 76 bpm. Gated Stress SPECT was performed 45 minutes after stress injection. The images were gated to evaluate regional wall motion and calculate left ventricular ejection fraction. Prone imaging was performed. Study Quality Study: [place] [address] CARDIAC NUCLEAR IMAGING REPORT Name: RADHA BERRIOS Room: [facility]#: [id number] Admission: 03/19/21 Attend Phys: Carolina Little Discharge: Date of : 38 Date of Service: 03/19/21 1723 Report #: [id number] Artifact: No artifact Study Data At rest, the left ventricular ejection fraction was 68%.. Post stress, the left ventricular ejection was 70%.. TID = 1.01. Perfusion Perfusion images obtained at rest and post Lexiscan stress show uniform uptake of the radioisotope throughout the myocardium. There were no defects to suggest infarct or ischemia. Wall Motion Normal left ventricular wall motion. Nuclear Conclusion ECG Findings: negative for ischemia Clinical Findings: negative for ischemia Nuclear Findings: negative for ischemia Exercise Capacity: not assessed Left Ventricular Function: normal Risk Study: low Perfusion images show no defect to suggest infarct or ischemia. Left-ventricular systolic function is normal on gated studies. This is a low risk study. <Conclusion> The baseline twelve-lead EKG shows sinus rhythm without significant ST segment or T wave abnormality. EKGs obtained during and post Lexiscan infusion shows sinus rhythm with no significant ST segment changes when compared to baseline. There were no stress-induced arrhythmias. <ELECTRONICALLY SIGNED> By: Teto Mills MD, [facility] 03/19/21 172 22 22 Teto Mills MD, FACC /INF
== END ==
LOC: M.NUC 10-02 09:09
PROVIDERS: ATTEND Internal Medicine
DX: I25.10 Atherosclerotic heart disease of native coronary artery without angina pectoris (principal); I21.4 Non-ST elevation (NSTEMI) myocardial infarction; Z95.9 Presence of cardiac and vascular implant and graft, unspecified

== ENCOUNTER → 2021-04-20 | Outpatient (CLI) | payer MEDICARE, OTHER | LOC: M.LAB 14:56 | PROVIDERS: ATTEND Internal Medicine Critical Care Medicine | DX: R60.0 Localized edema (principal) ==

== ENCOUNTER → 2021-04-27 | Outpatient (CLI) | payer MEDICARE, OTHER | LOC: M.ULTRA 13:04 | PROVIDERS: ATTEND Internal Medicine Critical Care Medicine | DX: M71.21 Synovial cyst of popliteal space [Baker], right knee (principal); R79.89 Other specified abnormal findings of blood chemistry; R60.0 Localized edema ==